=== PATIENT | female | born 1960 | race Caucasian/White ===

== ENCOUNTER → 2018-09-19 | Outpatient (CLI) | payer MEDICARE, MEDICAID ==
[~2018-09-19] MED LIST: ANTIVERT25 MG PO; ASPIRIN81 M1 PO; ATIVAN1 MG PO; AUGMENTIN 875875 MG PO; BENICAR20 MG PO; CELEXA40 MG PO; FISH OIL1000 MG PO; HYDROCODONE BIT1 T11 PO; JANUMET 500 MG-1 TAB PO; LEVEMIR100 U/ML SC; NEURONTIN300 MG PO; NOVOLOG100 U/ML SC; PRILOSEC20 M1 PO
== END | disposition home or self-care (01) ==
LOC: CT 16:43
DX: K11.8 Other diseases of salivary glands (principal); E04.1 Nontoxic single thyroid nodule; M47.812 Spondylosis without myelopathy or radiculopathy, cervical region; M48.02 Spinal stenosis, cervical region; M25.78 Osteophyte, vertebrae

== ENCOUNTER → 2018-10-01 | Outpatient (CLI) | payer MEDICARE, MEDICAID | END | disposition home or self-care (01) | LOC: US 07:30 | DX: K76.0 Fatty (change of) liver, not elsewhere classified (principal); Z90.49 Acquired absence of other specified parts of digestive tract ==

== ENCOUNTER → 2019-10-21 | Outpatient (CLI) | payer MEDICARE | END | disposition home or self-care (01) | LOC: RESCLI 00:57 | DX: Z12.11 Encounter for screening for malignant neoplasm of colon (principal); I10 Essential (primary) hypertension; G62.9 Polyneuropathy, unspecified; F32.9 Major depressive disorder, single episode, unspecified; E11.9 Type 2 diabetes mellitus without complications; K21.9 Gastro-esophageal reflux disease without esophagitis; E78.2 Mixed hyperlipidemia; I25.10 Atherosclerotic heart disease of native coronary artery without angina pectoris; E55.9 Vitamin D deficiency, unspecified; K31.84 Gastroparesis; F01.50 Vascular dementia, unspecified severity, without behavioral disturbance, psychotic disturbance, mood disturbance, and anxiety; J44.9 Chronic obstructive pulmonary disease, unspecified; Z79.4 Long term (current) use of insulin; Z79.899 Other long term (current) drug therapy; Z90.710 Acquired absence of both cervix and uterus; Z90.49 Acquired absence of other specified parts of digestive tract; Z90.89 Acquired absence of other organs; Z88.8 Allergy status to other drugs, medicaments and biological substances ==

== ENCOUNTER → 2019-11-13 | Outpatient (CLI) | payer MEDICARE ==
[2019-11-13 12:57] LABS: BASO # 0.1 10*3/uL (0.0-0.1); BASO % 1.5 % (0.0-1.0); EOS # 0.1 10*3/uL (0.0-0.4); EOS % 1.5 % (1.0-4.0); HEMATOCRIT 48.7 % (37.0-47.0); HEMOGLOBIN 15.4 g/dl (12.0-16.0); LYMPH # 2.4 10*3/uL (1.3-4.4); LYMPH % 37.4 % (27.0-41.0); MEAN CELL VOLUME 86.3 fl (81.0-99.0); MEAN CORPUSCULAR HGB 27.3 pg (27.0-31.0); MEAN CORPUSCULAR HGB CONC 31.6 g/dl (33.0-37.0); MEAN PLATELET VOLUME 10.7 fl (9.6-12.3); MONO # 0.7 10*3/uL (0.1-1.0); MONO % 11.3 % (3.0-9.0); NEUT # 3.1 10*3/uL (2.3-7.9); NEUT % 47.1 % (47.0-73.0); PLATELET COUNT AUTOMATED 218 10*3/uL (130-400); RED BLOOD COUNT 5.64 10*6/uL (4.10-5.10); RED CELL DISTRI WIDTH 14.4 % (0-14.5); WHITE BLOOD COUNT 6.5 10*3/uL (4.8-10.8)
[2019-11-13 13:33] LABS: ALBUMIN 3.1 gm/dl (3.1-4.5); ALKALINE PHOSPHATASE 132 U/L (45-117); BUN 8 mg/dl (7-24); CHLORIDE 106 mmol/L (98-107); CHOLESTEROL 120 mg/dL (<200); CREATININE 0.61 mg/dL (0.55-1.02); HDL CHOLESTEROL 32 mg/dl (40-60); LDL CHOLESTEROL 36 mg/dL (9-159); POTASSIUM 4.2 mmol/L (3.5-5.1); SGOT/AST 28 IU/L (3-35); SGPT/ALT 32 U/L (12-78); SODIUM 140 mmol/L (136-145); TOTAL PROTEIN 7.3 gm/dL (6.4-8.2); TRIGLYCERIDES 259 mg/dl (<150); VLDL CHOLESTEROL 52 mg/dL (6-40)
== END | disposition home or self-care (01) ==
LOC: LAB 12:07
PROVIDERS: Hospitalist
DX: E78.2 Mixed hyperlipidemia (principal); E11.9 Type 2 diabetes mellitus without complications; G62.9 Polyneuropathy, unspecified

== ENCOUNTER 2020-02-12 19:00 | Emergency (ER) | payer MEDICARE ==
[~2020-02-12] VITALS: Ht 157.4 cm; Wt 97.2 kg
[2020-02-12 19:51] LABS: BASO # 0.1 10*3/uL (0.0-0.1); BASO % 1.6 % (0.0-1.0); EOS # 0.2 10*3/uL (0.0-0.4); EOS % 2.6 % (1.0-4.0); HEMATOCRIT 43.7 % (37.0-47.0); LYMPH # 2.7 10*3/uL (1.3-4.4); LYMPH % 33.2 % (27.0-41.0); MEAN CELL VOLUME 85.7 fl (81.0-99.0); MEAN CORPUSCULAR HGB CONC 32.7 g/dl (33.0-37.0); MEAN PLATELET VOLUME 10.1 fl (9.6-12.3); MONO # 0.8 10*3/uL (0.1-1.0); NEUT % 50.6 % (47.0-73.0); PLATELET COUNT AUTOMATED 194 10*3/uL (130-400); RED CELL DISTRI WIDTH 14.8 % (0-14.5)
[2020-02-12 20:03] LABS: ACT PARTIAL THROMBO TIME 23.4 SECONDS (20.0-32.1); INTERNATIONAL NORM RATIO 0.9 (2.0-3.5)
[2020-02-12 20:09] LABS: ALBUMIN 3.1 gm/dl (3.1-4.5); ALKALINE PHOSPHATASE 145 U/L (45-117); BUN 8 mg/dl (7-24); CHLORIDE 104 mmol/L (98-107); CREATININE 0.75 mg/dL (0.55-1.02); POTASSIUM 3.8 mmol/L (3.5-5.1); SGOT/AST 31 IU/L (3-35); SGPT/ALT 30 U/L (12-78); SODIUM 135 mmol/L (136-145); TOTAL PROTEIN 7.4 gm/dL (6.4-8.2)
[2020-02-12 20:10] LABS: TROPONIN I < 0.015 ng/ml (<0.045)
[2020-02-12] MEDS ORDERED: PANTOPRAZOLE SO20 MG PO (20:30)
[2020-02-12] MEDS ORDERED: ESCITALOPRAM OX10 MG PO (20:48)
[2020-02-12] MEDS ORDERED: TRESIBA FL200 UNIT/1 SQ (20:48)
[2020-02-12] MEDS ORDERED: LISINOPRIL20 MG PO (20:49)
[2020-02-12] MEDS ORDERED: TRULICITY0.75 MG/0. SC (20:49)
[2020-02-12] MEDS ORDERED: PRANDIN1 MG PO (20:51)
[2020-02-12] MEDS ORDERED: ARICEPT5 M1 PO (20:52)
[2020-02-12] MEDS ORDERED: CYMBALTA20 M1 PO (20:52)
[2020-02-12] MEDS ORDERED: REGLAN10 M1 PO (20:53)
== END 2020-02-12 23:22 | disposition short-term general hospital (02) ==
LOC: ED 19:00
PROVIDERS: Emergency Medicine Emergency Medical Services
DX: I63.9 Cerebral infarction, unspecified (principal); E11.9 Type 2 diabetes mellitus without complications; I10 Essential (primary) hypertension; K21.9 Gastro-esophageal reflux disease without esophagitis; F17.200 Nicotine dependence, unspecified, uncomplicated; Z88.6 Allergy status to analgesic agent; Z88.8 Allergy status to other drugs, medicaments and biological substances; Z79.899 Other long term (current) drug therapy; Z79.82 Long term (current) use of aspirin; Z79.4 Long term (current) use of insulin

== ENCOUNTER → 2020-08-06 | Outpatient (CLI) | payer MEDICARE ==
[~2020-08-06] MED LIST changes: +ARICEPT5 M1 PO; +CYMBALTA20 M1 PO; +ESCITALOPRAM OX10 MG PO; +LISINOPRIL20 MG PO; +PANTOPRAZOLE SO20 MG PO; +PRANDIN1 MG PO; +REGLAN10 M1 PO; +TRESIBA FL200 UNIT/1 SQ; +TRULICITY0.75 MG/0. SC
== END | disposition home or self-care (01) ==
LOC: COVID19 12:01
PROVIDERS: ATTEND Social Worker Clinical
DX: Z20.828 Contact with and (suspected) exposure to other viral communicable diseases (principal)

== ENCOUNTER → 2021-08-03 | Outpatient (CLI) | payer MEDICARE | END | disposition home or self-care (01) | LOC: MAMMO 11:00 | PROVIDERS: ATTEND Nurse Practitioner Primary Care | DX: Z12.31 Encounter for screening mammogram for malignant neoplasm of breast (principal) ==

== ENCOUNTER 2022-08-12 00:45 | Emergency (ER) | payer MEDICARE ==
[~2022-08-12] VITALS: Ht 157.4 cm; Wt 90.7 kg
== END 2022-08-12 02:39 | disposition home or self-care (01) ==
LOC: ED 00:45
DX: E11.649 Type 2 diabetes mellitus with hypoglycemia without coma (principal); Z88.8 Allergy status to other drugs, medicaments and biological substances; Z79.899 Other long term (current) drug therapy; Z79.82 Long term (current) use of aspirin; Z90.710 Acquired absence of both cervix and uterus; Z90.49 Acquired absence of other specified parts of digestive tract; Z98.890 Other specified postprocedural states

== ENCOUNTER → 2022-08-21 | Day surgery (SDC) | payer MEDICARE ==
[~2022-08-21] VITALS: Ht 157.4 cm; Wt 91.2 kg
[~2022-08-21] MED LIST changes: +HUMALOG100 UNIT/1 SC; +LEXAPRO10 MG PO
[2022-08-21 09:31] VITALS: BP 158/62
[2022-08-21 10:59] VITALS: BP 126/51
[2022-08-21 11:15] VITALS: BP 127/70
[2022-08-21 11:26] VITALS: BP 104/57
[2022-08-21 12:16] LABS: BF LYMPHOCYTES 8 %; BF MACROPHAGES 79 %; BF NEUTROPHILS 13 %
[2022-08-22 09:07] LABS: ACID FAST SPEC PROCESSING Concentration (.)
== END | disposition home or self-care (01) ==
LOC: SDC 08-17 10:15
PROVIDERS: ATTEND Internal Medicine Critical Care Medicine
DX: R91.8 Other nonspecific abnormal finding of lung field (principal); R91.1 Solitary pulmonary nodule; J45.40 Moderate persistent asthma, uncomplicated; G47.33 Obstructive sleep apnea (adult) (pediatric); F17.210 Nicotine dependence, cigarettes, uncomplicated; Z85.44 Personal history of malignant neoplasm of other female genital organs

== ENCOUNTER → 2023-05-08 | Outpatient (CLI) | payer MEDICARE | END | disposition home or self-care (01) | LOC: US 15:48 | PROVIDERS: ATTEND Orthopaedic Surgery | DX: Z47.1 Aftercare following joint replacement surgery (principal); M25.561 Pain in right knee; Z96.651 Presence of right artificial knee joint; R22.41 Localized swelling, mass and lump, right lower limb ==

== ENCOUNTER 2024-02-06 12:51 | Emergency (ER) | payer MEDICARE ==
[~2024-02-06] VITALS: Ht 160 cm; Wt 111.1 kg
[2024-02-06] MEDS ORDERED: Albuterol Sulf/Ipratropium 3 ML VIAL NEB ONE (13:45)
[2024-02-06] MEDS ORDERED: methylPREDNISolone sod succ 125 MG VIAL IV ONE (13:45)
[2024-02-06 14:11] LABS: HEMATOCRIT 33.5 % (37.0-47.0); MEAN CELL VOLUME 76.3 fl (81.0-99.0); MEAN CORPUSCULAR HGB 21.9 pg (27.0-31.0); MEAN CORPUSCULAR HGB CONC 28.7 g/dl (33.0-37.0); MEAN PLATELET VOLUME 9.2 fl (9.6-12.3); NUCLEATED RED BLOOD CELL 0.1 % (0.0-0.0); PLATELET COUNT AUTOMATED 191 10*3/uL (130-400); RED BLOOD COUNT 4.39 10*6/uL (4.10-5.10); RED CELL DISTRI WIDTH 18.6 % (0-14.5); WHITE BLOOD COUNT 15.2 10*3/uL (4.8-10.8)
[2024-02-06 14:22] LABS: MANUAL DIFF REFLEX YES
[2024-02-06 14:29] LABS: ALKALINE PHOSPHATASE 100 U/L (46-116); BUN 10 mg/dl (9-23); CHLORIDE 102 mmol/L (98-107); SGPT/ALT 11 U/L (5-49); TOTAL PROTEIN 6.7 gm/dL (6.0-8.0)
[2024-02-06 14:31] LABS: ABG BASE EXCESS 1.1 mmol/L (-2.0-2.0); ARTERIAL BLOOD GAS PH 7.403 (7.35-7.45)
[2024-02-06 14:42] LABS: TOTAL CELLS COUNTED 100 #CELLS
[2024-02-06 14:43] LABS: PLATELET SUFFICIENCY NORMAL (NORMAL)
[2024-02-06 14:44] LABS: BURR CELLS FEW; OVALOCYTES FEW; POLYCHROMASIA SLIGHT; ROULEAUX SLIGHT
[2024-02-06] MEDS ORDERED: ACETAMINOPHEN 325 MG TAB PO ONE (14:55)
[2024-02-06] MEDS ORDERED: MAGNESIUM SULFATE 50 ML IV ONE (14:55)
[2024-02-06] MEDS ORDERED: IOHEXOL 300 MG/ML 100 ML VIAL IV ONE (15:10)
[2024-02-06] MEDS ORDERED: AZITHROMYCIN 250 ML IV ONE (15:50)
[2024-02-06] MEDS ORDERED: Ceftriaxone Sodium 1 GM/10 ML SYR IV ONE (15:50)
[2024-02-06] MEDS ORDERED: NOVOLOG FL100 UNIT/2 SC (16:01)
[2024-02-06] MEDS ORDERED: LEXAPRO20 MG PO (16:02)
[2024-02-06] MEDS ORDERED: METFORMIN HYD1000 MG PO (16:03)
[2024-02-06] MEDS ORDERED: LISINOPRIL30 MG PO (16:04)
[2024-02-06] MEDS ORDERED: GABAPENTIN400 MG PO ×2 (16:05→16:06)
[2024-02-06] MEDS ORDERED: HYDROCHLOROTH12.5 M2 PO (16:06)
[2024-02-06] MEDS ORDERED: MELOXICAM15 MG PO (16:07)
[2024-02-06] MEDS ORDERED: METHOCARBAMOL500 M1 PO (16:08)
[2024-02-06] MEDS ORDERED: BENZONATATE200 MG PO (16:09)
[2024-02-06] MEDS ORDERED: PIOGLITAZONE HC30 MG PO (16:10)
[2024-02-06] MEDS ORDERED: LIPITOR80 MG PO (16:10)
[2024-02-06] MEDS ORDERED: INSULIN REGULAR, HUMAN 1 UNIT/0.01 ML IV ONE (21:35)
[2024-02-07] MEDS ORDERED: GABAPENTIN 800 MG TAB PO ONE ×2 (00:40→01:25)
== END 2024-02-07 09:00 | disposition short-term general hospital (02) ==
LOC: ED 12:51
PROVIDERS: Emergency Medicine; Nurse Practitioner Family
DX: J96.91 Respiratory failure, unspecified with hypoxia (principal); Z20.822 Contact with and (suspected) exposure to COVID-19; E83.42 Hypomagnesemia; R91.8 Other nonspecific abnormal finding of lung field; J18.9 Pneumonia, unspecified organism; J44.9 Chronic obstructive pulmonary disease, unspecified; F41.9 Anxiety disorder, unspecified; F32.A Depression, unspecified; E11.9 Type 2 diabetes mellitus without complications; K21.9 Gastro-esophageal reflux disease without esophagitis; E78.00 Pure hypercholesterolemia, unspecified; Z88.5 Allergy status to narcotic agent; Z88.8 Allergy status to other drugs, medicaments and biological substances; Z90.710 Acquired absence of both cervix and uterus; Z90.49 Acquired absence of other specified parts of digestive tract; Z98.890 Other specified postprocedural states

== ENCOUNTER → 2024-11-23 | Outpatient (CLI) | payer MEDICARE ==
[~2024-11-23] MED LIST changes: +BENZONATATE200 MG PO; +GABAPENTIN400 MG PO; +HYDROCHLOROTH12.5 M2 PO; +LEXAPRO20 MG PO; +LIPITOR80 MG PO; +LISINOPRIL30 MG PO; +MELOXICAM15 MG PO; +METFORMIN HYD1000 MG PO; +METHOCARBAMOL500 M1 PO; +NOVOLOG FL100 UNIT/2 SC; +PIOGLITAZONE HC30 MG PO
[2024-11-23 10:35] LABS: BASO # 0.1 10*3/uL (0.0-0.1); BASO % 1.7 % (0.0-1.0); EOS # 0.2 10*3/uL (0.0-0.4); EOS % 3.1 % (1.0-4.0); HEMATOCRIT 32.6 % (37.0-47.0); MEAN CELL VOLUME 75.5 fl (81.0-99.0); MEAN CORPUSCULAR HGB 19.9 pg (27.0-31.0); MEAN CORPUSCULAR HGB CONC 26.4 g/dl (33.0-37.0); MEAN PLATELET VOLUME 9.2 fl (9.6-12.3); MONO # 0.7 10*3/uL (0.1-1.0); MONO % 11.3 % (3.0-9.0); NEUT # 3.2 10*3/uL (2.3-7.9); NEUT % 49.8 % (47.0-73.0); PLATELET COUNT AUTOMATED 241 10*3/uL (130-400); RED BLOOD COUNT 4.32 10*6/uL (4.10-5.10); RED CELL DISTRI WIDTH 19.4 % (0-14.5); WHITE BLOOD COUNT 6.5 10*3/uL (4.8-10.8)
[2024-11-23 10:49] LABS: BILIRUBIN Negative (Negative); BLOOD Negative (Negative); CLARITY Clear (Clear); COLOR Yellow (Yellow); GLUCOSE Negative (Negative); KETONE Negative (Negative); LEUKO ESTERASE Negative (Negative); NITRITE Negative (Negative); PH 5.5 (4.5-8.0); UROBILINOGEN 0.2 E.U./dl (0.0-1.0)
[2024-11-23 11:17] LABS: ALKALINE PHOSPHATASE 94 U/L (46-116); BUN 19 mg/dl (9-23); CHLORIDE 107 mmol/L (98-107); CHOLESTEROL 182 mg/dL (<200); CPK 44 U/L (34-171); LDL CHOLESTEROL 78 mg/dL (9-159); POTASSIUM 3.8 mmol/L (3.4-5.1); SGPT/ALT 8 U/L (5-49); TOTAL PROTEIN 6.6 gm/dL (6.0-8.0); TRIGLYCERIDES 331 mg/dl (<150)
[2024-11-23 11:18] LABS: VITAMIN D, 25-HYDROXY 25.8 ng/mL (30-100)
== END | disposition home or self-care (01) ==
LOC: LAB 09:52
PROVIDERS: ATTEND Nurse Practitioner Primary Care
DX: I45.10 Unspecified right bundle-branch block (principal); E11.9 Type 2 diabetes mellitus without complications; I10 Essential (primary) hypertension; R50.9 Fever, unspecified; M79.606 Pain in leg, unspecified; G62.9 Polyneuropathy, unspecified; Z13.228 Encounter for screening for other metabolic disorders

== ENCOUNTER → 2025-02-01 | Outpatient (CLI) | payer MEDICARE ==
[~2025-02-01] MED LIST changes: +DONEPEZIL HCL10 MG PO; +GRALISE900 MG PO; +IOHEXOL 300 MG/ML 100 ML VIAL IV ONE; +IRON325 M1 PO; +OMNICEF300 MG PO; +PREDNISONE10 MG PO; +ROSUVASTATIN CAL5 MG PO; +ZITHROMAX500 MG PO
== END | disposition home or self-care (01) ==
LOC: MAMMO 09:00
PROVIDERS: ATTEND Nurse Practitioner Primary Care
DX: Z12.31 Encounter for screening mammogram for malignant neoplasm of breast (principal); R91.1 Solitary pulmonary nodule; F17.200 Nicotine dependence, unspecified, uncomplicated; M85.80 Other specified disorders of bone density and structure, unspecified site; M81.0 Age-related osteoporosis without current pathological fracture

== ENCOUNTER → 2025-03-20 | Outpatient (CLI) | payer OTHER ==
[~2025-03-20] MED LIST changes: -IOHEXOL 300 MG/ML 100 ML VIAL IV ONE
[2025-03-20 10:56] LABS: BASO # 0.1 10*3/uL (0.0-0.1); BASO % 1.8 % (0.0-1.0); EOS # 0.1 10*3/uL (0.0-0.4); EOS % 2.5 % (1.0-4.0); MEAN CELL VOLUME 83.1 fl (81.0-99.0); MEAN CORPUSCULAR HGB 24.7 pg (27.0-31.0); MEAN PLATELET VOLUME 9.4 fl (9.6-12.3); MONO # 0.6 10*3/uL (0.1-1.0); MONO % 12.3 % (3.0-9.0); NEUT # 2.7 10*3/uL (2.3-7.9); NEUT % 53.0 % (47.0-73.0); NUCLEATED RED BLOOD CELL 0.0 % (0.0-0.0); NUCLEATED RED BLOOD CELL 0.0 10*3/uL (0.0-0.0); PLATELET COUNT AUTOMATED 192 10*3/uL (130-400); RED CELL DISTRI WIDTH 18.2 % (0-14.5)
[2025-03-20 11:32] LABS: BUN 9 mg/dl (9-23); SGPT/ALT 10 U/L (5-49)
[2025-03-20 11:40] LABS: BILIRUBIN Negative (Negative); BLOOD Negative (Negative); CLARITY Clear (Clear); COLOR Yellow (Yellow); KETONE Negative (Negative); LEUKO ESTERASE Negative (Negative); NITRITE Negative (Negative); PH 5.5 (4.5-8.0); SPECIFIC GRAVITY 1.015 (1.001-1.030); UROBILINOGEN 1.0 E.U./dl (0.0-1.0)
[2025-03-20 11:57] LABS: BACTERIA TRACE
== END | disposition home or self-care (01) ==
LOC: LAB 10:18
PROVIDERS: ATTEND Nurse Practitioner Primary Care
DX: I10 Essential (primary) hypertension (principal); E11.9 Type 2 diabetes mellitus without complications; E78.5 Hyperlipidemia, unspecified; D50.9 Iron deficiency anemia, unspecified

== ENCOUNTER 2025-04-08 19:53 | Emergency (ER) | payer OTHER ==
[~2025-04-08] VITALS: Ht 157.4 cm; Wt 95.3 kg
[2025-04-08] MEDS ORDERED: CEPHALEXIN 500 MG CAP PO ONE (20:30)
[2025-04-08] MEDS ORDERED: Rabies Vaccine 1 ML VIAL IM ONE (20:30)
[2025-04-08] MEDS ORDERED: Tdap Vaccine 0.5 ML SYR (Adult Vaccine) IM ONE (20:35)
[2025-04-08] MEDS ORDERED: Bactroban Oint22 GM T (21:24)
[2025-04-08] MEDS ORDERED: AMOX-CLAV 875-1 EACH PO (21:24)
== END 2025-04-08 21:49 | disposition home or self-care (01) ==
LOC: ED 19:53
DX: S41.151A Open bite of right upper arm, initial encounter (principal); I10 Essential (primary) hypertension; E11.9 Type 2 diabetes mellitus without complications; K21.9 Gastro-esophageal reflux disease without esophagitis; F32.A Depression, unspecified; F41.9 Anxiety disorder, unspecified; J44.9 Chronic obstructive pulmonary disease, unspecified; F17.200 Nicotine dependence, unspecified, uncomplicated; Z79.82 Long term (current) use of aspirin; Z79.4 Long term (current) use of insulin; Z79.899 Other long term (current) drug therapy; Z88.5 Allergy status to narcotic agent; Z88.8 Allergy status to other drugs, medicaments and biological substances; Z90.49 Acquired absence of other specified parts of digestive tract; Z90.710 Acquired absence of both cervix and uterus; Z90.89 Acquired absence of other organs; Z98.890 Other specified postprocedural states; W55.51XA Bitten by raccoon, initial encounter; Y93.89 Activity, other specified; Y92.89 Other specified places as the place of occurrence of the external cause; Y99.8 Other external cause status

== ENCOUNTER 2025-04-11 17:04 | Emergency (ER) | payer OTHER ==
[~2025-04-11 17:04] MED LIST changes: +AMOX-CLAV 875-1 EACH PO; +Bactroban Oint22 GM T
== END 2025-04-11 19:29 | disposition left against medical advice (07) ==
LOC: ED 17:04
DX: Z20.3 Contact with and (suspected) exposure to rabies (principal); Z53.21 Procedure and treatment not carried out due to patient leaving prior to being seen by health care provider

== ENCOUNTER 2025-04-12 12:27 | Emergency (ER) | payer OTHER ==
[2025-04-12] MEDS ORDERED: Rabies Vaccine 1 ML VIAL IM ONE (12:35)
== END 2025-04-12 12:58 | disposition home or self-care (01) ==
LOC: ED 12:27
DX: Z23 Encounter for immunization (principal); F17.210 Nicotine dependence, cigarettes, uncomplicated; Z90.710 Acquired absence of both cervix and uterus; Z98.890 Other specified postprocedural states; Z90.49 Acquired absence of other specified parts of digestive tract; Z88.5 Allergy status to narcotic agent; Z88.8 Allergy status to other drugs, medicaments and biological substances

== ENCOUNTER 2025-04-16 11:49 | Emergency (ER) | payer OTHER ==
[~2025-04-16] VITALS: Ht 157.4 cm; Wt 95.3 kg
[2025-04-16] MEDS ORDERED: Rabies Vaccine 1 ML VIAL IM ONE (11:55)
== END 2025-04-16 12:20 | disposition home or self-care (01) ==
LOC: ED 11:49
DX: Z20.3 Contact with and (suspected) exposure to rabies (principal); F17.210 Nicotine dependence, cigarettes, uncomplicated; Z88.5 Allergy status to narcotic agent; Z88.8 Allergy status to other drugs, medicaments and biological substances; Z90.710 Acquired absence of both cervix and uterus; Z90.721 Acquired absence of ovaries, unilateral; Z98.890 Other specified postprocedural states; Z90.49 Acquired absence of other specified parts of digestive tract

== ENCOUNTER 2025-04-24 12:33 | Emergency (ER) | payer OTHER ==
[~2025-04-24] VITALS: Ht 157.4 cm; Wt 95.3 kg
[2025-04-24] MEDS ORDERED: Rabies Vaccine 1 ML VIAL IM ONE (12:35)
== END 2025-04-24 13:24 | disposition home or self-care (01) ==
LOC: ED 12:33
DX: Z23 Encounter for immunization (principal); E11.9 Type 2 diabetes mellitus without complications; I10 Essential (primary) hypertension; K21.9 Gastro-esophageal reflux disease without esophagitis; F41.9 Anxiety disorder, unspecified; F32.A Depression, unspecified; J44.9 Chronic obstructive pulmonary disease, unspecified; Z88.5 Allergy status to narcotic agent; Z88.8 Allergy status to other drugs, medicaments and biological substances; Z98.890 Other specified postprocedural states; Z90.710 Acquired absence of both cervix and uterus; Z90.49 Acquired absence of other specified parts of digestive tract